=== PATIENT | female | born 1955 | race Caucasian/White ===

== ENCOUNTER 2022-03-21 19:34 | Emergency (ER) | payer MEDICARE, BC, SELFPAY ==
[2022-03-21 19:50] VITALS: BP 152/86; PULSE 73; RESP 16; TEMP 36.7; O2SAT 97; BMI 24.2
--- NOTE | 2022-03-21 19:58 | XRR_ITS ---
PROCEDURE INFORMATION: Exam: XR Left Hand Exam date and time: 03/21/2022 8:10 PM Age: 66 years old Clinical indication: Injury or trauma; Blunt trauma (contusions or hematomas); Patient HX: Tripped and fell on sidewalk and used left hand to brace fall. C/O pain along lateral side of hand along the 5th meta carpal. TECHNIQUE: Imaging protocol: Radiologic exam of the Left hand. Views: 3 or more views. COMPARISON: No relevant prior studies available. FINDINGS: Bones/joints: Slightly displaced slightly angulated fracture through the base of the 5th metacarpal. Soft tissues: Normal. XR/XR hand LT min 3V* [id number] IMPRESSION: Slightly displaced slightly angulated fracture through the base of the 5th metacarpal.
--- NOTE | 2022-03-21 19:58 | XRR_ITS ---
PROCEDURE INFORMATION: Exam: XR Left Wrist Exam date and time: 03/21/2022 8:10 PM Age: 66 years old Clinical indication: Injury or trauma; Blunt trauma (contusions or hematomas); Wrist; Patient HX: Tripped and fell on sidewalk and used left hand to brace fall. C/O pain along lateral side of hand along the 5th meta carpal. TECHNIQUE: Imaging protocol: Radiologic exam of the Left wrist. Views: 3 or more views. COMPARISON: No relevant prior studies available. FINDINGS: Bones/joints: Horizontal fracture through the base of the 5th meta carpal with dorsal and ulnar angulation. Soft tissues: Normal. XR/XR wrist LT min 3V* [id number] IMPRESSION: 1. Horizontal fracture through the base of the 5th meta carpal with dorsal and ulnar angulation. 2. If pain persists, repeat images and/or MRI is recommended in 7-10 days to rule out occult pathology if clinically indicated.
--- NOTE | 2022-03-21 20:20 | XRR_ITS ---
PROCEDURE INFORMATION: Exam: XR Left Knee Exam date and time: 03/21/2022 8:35 PM Age: 66 years old Clinical indication: Pain; Knee; Left; Additional info: Fall TECHNIQUE: Imaging protocol: Radiologic exam of the Left knee. Views: 3 views. COMPARISON: No relevant prior studies available. FINDINGS: Bones/joints: Normal. Soft tissues: Normal. XR/XR knee LT 3V* [id number] IMPRESSION: No acute findings.
--- NOTE | 2022-03-21 20:20 | XRR_ITS ---
PROCEDURE INFORMATION: Exam: XR Facial Bones, Less Than 3 Views Exam date and time: 03/21/2022 8:35 PM Age: 66 years old Clinical indication: Pain and injury or trauma; Fall; Face pain; Swelling; Cheek bone; Left TECHNIQUE: Imaging protocol: XR of the facial bones, less than 3 views. COMPARISON: No relevant prior studies available. FINDINGS: Sinuses: Well aerated. No opacification. Bones/joints: No fracture. Soft tissues: Unremarkable. XR/XR facial bones <3V [id number] IMPRESSION: Unremarkable.
--- NOTE | 2022-03-21 20:21 | W.ED.FALL ---
HPI - Fall General: Chief Complaint: Fall Stated Complaint: Left wrist injury Time Seen by Provider: 03/21/22 20:06 Source: patient and family Mode of arrival: ambulatory Limitations: no limitations History of Present Illness: Patient presents to the emergency department because of fall injury. She states she was in the flower bed and lost her balance and attempted to break her fall but wind up falling on an outstretched left hand. She states she also hit the left side of her face but did not suffer a loss of consciousness. He also complains of some left knee pain. There was no syncope prior to the fall and no other injuries claim. She denies any antiplatelet or anticoagulant medications. Fall witnessed: yes, by family Place fall occurred: home Loss of consciousness: None Location of injury - extremities: Left: hand and knee Severity: moderate Associated symptoms-after fall: Denies abdominal pain, chest pain, headache(s) or neck pain Review of Systems Const: Denies: fever(s) or chills Eyes: Denies: change in vision ENMT: Denies: throat pain, odynophagia, nasal discharge or nasal congestion Card: Denies: chest pain, palpitations, syncope or pre-syncope Resp: Denies: dyspnea, productive cough or non-productive cough GI: Denies: abdominal pain, nausea or vomiting : Denies: flank pain, difficulty voiding or dysuria Musc: Reports: extremity pain; Denies: neck pain or back pain Skin/Breast: Denies: rash Neuro: Denies: headache(s), numbness in extremities or weakness in extremities Damon/Lymph: Denies: easy bruising or easy bleeding Physical Exam Narrative: EXAM NARRATIVE: Patient is alert and oriented answering questions in a goal-directed fashion, makes good eye contact. Const: COMMON NORMALS: no acute distress GENERAL APPEARANCE: cooperative and comfortable ORIENTATION/CONSCIOUSNESS: Yes awake, Yes oriented to person and Yes oriented to place HENMT: HEAD & SCALP: contusion (Left lateral orbit) FACE & SINUS: sinuses nontender and face symmetric Eye: COMMON NORMALS: Equal, round and reactive pupils present, EOMs intact bilaterally and conjunctivae normal CONJUNCTIVA: Yes conjunctivae normal PUPIL: Yes Equal, round and reactive pupils present Neck/C-Spine: COMMON NORMALS: full ROM CERVICAL SPINE: Yes cervical ROM normal, No Cervical spine tenderness, No step off deformity, No Paracervical muscle tenderness, No Paracervical spasm and Yes Trapezius muscle tenderness left Chest: COMMONS NORMALS: normal inspection of the chest Resp: COMMON NORMALS: normal respiratory effort, No retractions and No use of accessory muscles Cardio: COMMON NORMALS: regular rate and Peripheral pulses 2+ throughout RATE: regular rate PERIPHERAL PULSES: Peripheral pulses 2+ throughout : COMMON NORMALS: Yes no CVA tenderness BLADDER/KIDNEY EXAM: Yes no CVA tenderness Back/Pelvis: COMMON NORMALS: no CVA tenderness, thoracic and lumbar spine normal to inspection, no thoracic nor lumbar tenderness, thoraco-lumbar ROM normal and straight leg raise negative bilaterally Extremity: LEFT UPPER EXTREMITY: Yes shoulder joint (Normal range of motion), Yes elbow joint (Nontender normal range of motion), Yes wrist and Yes hand & digits LEFT LOWER EXTREMITY: Yes knee joint (Stable to varus and valgus stress. No effusion. Tender inferior ) Neuro: COMMON NORMALS: moves all extremities, no focal motor deficits and no sensory deficits noted SENSORIUM/ORIENTATION: Yes oriented to person and Yes oriented to place CRANIAL NERVES: Yes CN normal except as noted Psych: COMMON NORMALS: mental status grossly normal Skin: NARRATIVE SKIN EXAM: Superficial abrasion to left lower leg 2 to 3 cm total surface area. Course Reevaluation(s): Reevaluation #1: CurrentPatient reevaluated no new or focal findings. Findings on her radiographs. Also discussed plan of care and need for follow-up. Both she and spouse voiced understanding. And place her in a volar splint due to her fifth metacarpal fracture. Has some displacement but not felt to require manipulation at this juncture. Time: 21:13 Vital Signs: Vital signs: Vital Signs Temperature 98.0 F 03/21/22 19:50 Pulse Rate 73 03/21/22 19:50 Respiratory Rate 16 03/21/22 19:50 Blood Pressure 152/86 03/21/22 19:50 Pulse Oximetry 97 03/21/22 19:50 Oxygen Delivery Me thod 03/21/22 19:50 MDM - Fall Medical Decision Making Patient presented with a ground-level fall due to a trip and fall without syncope. Evaluation revealed contusion of the left face minimally displaced left fifth metcarpal fracture and abrasions but no other significant injury. She will be placed in a volar splint with orthopedic follow-up. Discussed expected course and possible late discovery of other injuries and return precautions. She and spouse voiced understanding. Lab Data I reviewed the patient's lab results. Radiology Impressions Hand X-Ray 03/21/22 19:58 IMPRESSION: Slightly displaced slightly angulated fracture through the base of the 5th metacarpal. Wrist X-Ray 03/21/22 19:58 IMPRESSION: 1. Horizontal fracture through the base of the 5th meta carpal with dorsal and ulnar angulation. 2. If pain persists, repeat images and/or MRI is recommended in 7-10 days to rule out occult pathology if clinically indicated. Face X-Ray 03/21/22 20:20 IMPRESSION: Unremarkable. Knee X-Ray 03/21/22 20:20 IMPRESSION: No acute findings. Discharge Plan Discharge Patient Disposition: Home Clinical Impression: Fall from ground level, Closed fracture of fifth metacarpal bone, Contusion of face Condition: Stable Discharge Orders: Discharge ED (Routine); Ordered 03/21/22 Ordered By: Reji Lee Referrals: Adnrew Ramires MD [Physician] - Discharge Diet: Usual diet Discharge Activity: Limit activity as instructed Patient Instructions: Opioid Safety Activity Restrictions/Additional Instructions: Leave splint in place until you are seen by the orthopedic clinic. If you develop any new pains or increasing pains or any concerns at any time return to this emergency department for reevaluation. You may use [id number] ibuprofen and/or acetaminophen for pain control. Coding Level of Care Code ED Dispute Coordinator for Holli Fwd Exam Comprehensive
[2022-03-21 21:30] VITALS: PULSE 76; O2SAT 97
--- NOTE | 2022-03-24 09:17 | DCPLANNER ---
Addendum entered by Kayleigh Weathers 04/10/22 09:03: Patient had a follow up appointment scheduled with ortho - patient did attend appointment. Addendum entered by Kayleigh Weathers 03/25/22 08:55: Patient has a follow up appointment scheduled for , March 26, [address]22 at 2:[address] Ramires at ortho. Clinic will call patient with appointment information. Original Note: manager beauty had message to schedule a follow up appointment for patient with ortho. manager beauty sent patients information to the front office staff at ortho. Patients information will be printed and reviewed. Clinic will call patient with appointment information.
== END 2022-03-21 21:32 | disposition home or self-care (01) ==
PROVIDERS: Emergency Provider Emergency Medicine
DX: S62.307A Unspecified fracture of fifth metacarpal bone, left hand, initial encounter for closed fracture (principal); S00.83XA Contusion of other part of head, initial encounter; W18.30XA Fall on same level, unspecified, initial encounter
CPT/HCPCS: 70140; 73110; 73130; 73562; 99284

== ENCOUNTER → 2022-03-26 13:42 | Outpatient (BNVA) | payer MEDICARE, BC, SELFPAY | PROVIDERS: Referring Provider Emergency Medicine; Visit Provider Orthopaedic Surgery | DX: S62.397A Other fracture of fifth metacarpal bone, left hand, initial encounter for closed fracture (principal); W01.0XXA Fall on same level from slipping, tripping and stumbling without subsequent striking against object, initial encounter | CPT/HCPCS: 26600 ==

== ENCOUNTER 2022-03-26 15:39 | Outpatient (CLI) | payer MEDICARE, BC, SELFPAY | END 2022-03-26 15:40 | disposition home or self-care (01) | LOC: SPT 15:41 | PROVIDERS: Visit Provider Orthopaedic Surgery | DX: Z46.89 Encounter for fitting and adjustment of other specified devices (principal); S62.347D Nondisplaced fracture of base of fifth metacarpal bone, left hand, subsequent encounter for fracture with routine healing; X58.XXXD Exposure to other specified factors, subsequent encounter | CPT/HCPCS: 97760; L3984 ==

== ENCOUNTER → 2022-04-23 10:03 | Outpatient (BNVA) | payer MEDICARE, BC, SELFPAY | PROVIDERS: Visit Provider Nurse Practitioner Family | DX: S62.347D Nondisplaced fracture of base of fifth metacarpal bone, left hand, subsequent encounter for fracture with routine healing (principal); X58.XXXD Exposure to other specified factors, subsequent encounter | CPT/HCPCS: 73130; 99214 ==

== ENCOUNTER → 2022-05-23 10:30 | Outpatient (BNVA) | payer MEDICARE, BC, SELFPAY | PROVIDERS: Visit Provider Nurse Practitioner Family | DX: S62.347D Nondisplaced fracture of base of fifth metacarpal bone, left hand, subsequent encounter for fracture with routine healing (principal); X58.XXXD Exposure to other specified factors, subsequent encounter | CPT/HCPCS: 73130; 99213 ==